=== PATIENT | male | born 1990 | race Hispanic/Latino ===

== ENCOUNTER 2020-02-17 19:09 | Emergency (ER) | payer BC ==
[~2020-02-17] VITALS: Ht 182.9 cm; Wt 122.5 kg
--- NOTE | 2020-02-17 19:27 | Emergency Department Note ---
History of Present Illnes History of Present Illness Chief Complaint: Chest Pain History of Present Illness This is a 29 year old male presents to the ED for 4 week h/o of CP. Seen by alina olivarez earlier this month . Onset (how long ago): week(s) (4) Radiation: Reports non-radiation Severity: moderate Onset quality: gradual Duration (how long): week(s) (4) Timing of current episode: intermittent Progression: waxing and waning Chronicity: recurrent Relieving factors: none Exacerbating factors: none Previous service: tests performed, one or more referrals, re-evaluation Past Medical/Family History Physician Review I have reviewed the patient's past medical and family history. Any updates have been documented here. Past Medical History Recent Fever: No Clinical Suspicion of Infectio: No New/Unexplained Change in Ment: No Past Medical History: Hypertension Past Surgical History: None Social History Smoking Cessation: Never Smoker Alcohol Use: None Any Illegal Drug Use: No Review of Systems Review of Systems Constitutional: Reports no symptoms EENTM: Reports no symptoms Cardiovascular: Reports chest pain Respiratory: Reports dyspnea Gastrointestinal: Reports no symptoms Genitourinary: Reports no symptoms Musculoskeletal: Reports no symptoms Integumentary: Reports no symptoms Neurological: Reports no symptoms Psychological: Reports no symptoms Endocrine: Reports no symptoms Hematological/Lymphatic: Reports no symptoms Physical Exam Related Data Allergies: Coded Allergies: No Known Allergies (Unverified , 02/17/20) Triage Vital Signs Vital Signs Date Time Temp Pulse Resp B/P (MAP) Pulse Ox O2 Delivery O2 Flow Rate FiO2 02/17/20 19:21 98.2 74 18 139/85 100 Room Air Vital signs reviewed: Yes Physical Exam CONSTITUTIONAL Constitutional: Present well-developed, Present well-nourished HENT HENT: Present normocephalic, Present atraumatic, Present oropharynx harrison r/moist, Present nose normal HENT L/R: Present left ext ear normal, Present right ext ear normal EYES Eyes: Reports PERRL, Reports conjunctivae normal NECK Neck: Present ROM normal PULMONARY Pulmonary: Present effort normal, Present breath sounds normal CARDIOVASCULAR Cardiovascular: Present regular rhythm, Present heart sounds normal, Present capillary refill normal, Present normal rate GASTROINTESTINAL Abdominal: Present soft, Present nontender, Present bowel sounds normal GENITOURINARY Genitourinary: Present exam deferred SKIN Skin: Present warm, Present dry MUSCULOSKELETAL Musculoskeletal: Present ROM normal NEUROLOGICAL Neurological: Present alert, Present oriented x 3, Present no gross motor or sensory deficits PSYCHOLOGICAL Psychological: Present mood/affect normal, Present judgement normal Results Laboratory Lab results reviewed: Yes Laboratory comments Laboratory Tests Test 02/17/20 19:32 White Blood Count 8.49 x10e3/uL (4.8-10.8) Red Blood Count 4.46 x10e6/uL (4.3-5.7) Hemoglobin 14.1 g/dL (14.0-18.0) Hematocrit 39.4 % (38.2-49.6) Mean Corpuscular Volume 88.3 fL (81-99) Mean Corpuscular Hemoglobin 31.6 pg (28-32) Mean Corpuscular Hemoglobin Concent 35.8 g/dL (31-35) Red Cell Distribution Width 11.9 % (11.7-14.4) Platelet Count 248 x10e3/uL (140-360) Neutrophils (%) (Auto) 50.5 % (38.7-80.0) Lymphocytes (%) (Auto) 40.0 % (18.0-39.1) Monocytes (%) (Auto) 7.2 % (4.4-11.3) Eosinophils (%) (Auto) 1.6 % (0.0-6.0) Basophils (%) (Auto) 0.5 % (0.0-1.0) Neutrophils # (Auto) 4.3 (2.1-6.9) Lymphocytes # (Auto) 3.4 (1.0-3.2) Monocytes # (Auto) 0.6 (0.2-0.8) Eosinophils # (Auto) 0.1 (0.0-0.4) Basophils # (Auto) 0.0 (0.0-0.1) Absolute Immature Granulocyte (auto 0.02 x10e3/uL (0-0.1) D-Dimer Quantitative (PE/DVT) 0.24 ug/mLFEU (0.00-0.45) Sodium Level 140 mmol/L (136-145) Potassium Level 3.7 mmol/L (3.5-5.1) Chloride Level 102 mmol/L (98-107) Carbon Dioxide Level 25 mmol/L (22-29) Anion Gap 16.7 mmol/L (8-16) Blood Urea Nitrogen 14 mg/dL (7-26) Creatinine 1.09 mg/dL (0.72-1.25) Estimat Glomerular Filtration Rate > 60 ML/MIN (60-) BUN/Creatinine Ratio 13 (6-25) Glucose Level 95 mg/dL (74-118) Calcium Level 9.4 mg/dL (8.4-10.2) Total Bilirubin 0.8 mg/dL (0.2-1.2) Aspartate Amino Transf (AST/SGOT) 19 IU/L (5-34) Alanine Aminotransferase (ALT/SGPT) 19 IU/L (0-55) Alkaline Phosphatase 80 IU/L (40-150) Creatine Kinase 79 IU/L (30-200) Creatine Kinase MB 0.80 ng/mL (0-5.0) Troponin I 0.021 ng/mL (0-0.300) B-Type Natriuretic Peptide < 10.0 pg/mL (0-100) Total Protein 7.9 g/dL (6.5-8.1) Albumin 4.5 g/dL (3.5-5.0) Globulin 3.4 g/dL (2.3-3.5) Albumin/Globulin Ratio 1.3 (0.8-2.0) Lipase 23 U/L (8-78) Urine Opiates Screen Negative (NEGATIVE) Urine Methadone Screen Negative (NEGATIVE) Urine Barbiturates Screen Negative (NEGATIVE) Urine Phencyclidine Screen Negative (NEGATIVE) Urine Amphetamines Screen Negative (NEGATIVE) Urine Methamphetamines Screen Negative (NEGATIVE) Urine Benzodiazepines Screen Negative (NEGATIVE) Urine Cocaine Screen Negative (NEGATIVE) Urine Cannabinoids Screen Negative (NEGATIVE) Imaging Imaging results reviewed: Yes Impressions [place] [id number] Patient Name: NEMO BATES JR MR #: [id number] : 1990 Age/Sex: 29/M Req #: [id number] Adm Physician: Ordered by: JIM RUBIO DO Report #: [id number] Location: ER Room/Bed: Procedure: [id number] DX/CHEST 2 VIEWS Exam Date: 02/17/20 Exam Time: 1950 REPORT STATUS: Signed EXAMINATION: CHEST 2 VIEWS INDICATION: Chest pain. COMPARISON: None FINDINGS: TUBES and LINES: None. LUNGS: Normal lung volumes. Lungs are clear. No consolidations. Bibasilar atelectasis.C PLEURA: No pleural effusion or pneumothorax. HEART AND MEDIASTINUM: The cardiomediastinal silhouette is unremarkable. BONES AND SOFT TISSUES: No acute osseous lesion. Soft tissues are unremarkable. UPPER ABDOMEN: No free air under the diaphragm. IMPRESSION: No acute thoracic radiographic abnormality. Signed by: Mushtaq Narvaez MD on 02/17/2020 9:25 PM Dictated By: MUSHTAQ NARVAEZ MD 24 Transcribed By: JESSICA on 02/17/202124 COPY TO: JIM RUBIO DO~ Procedures 12 Lead ECG Interpretation ECG Interpretation : ECG: ECG 1 Technical Support Manager: Interpreted by ED physician Date: Feb 17, 2020 Time: 19:49 Prior ECG tracings: reviewed Rhythm: sinus rhythm Rate: normal BPM: 71 QRS axis: normal ST segments normal: Yes T waves normal: Yes Clinical Impression: normal ECG Assessment & Plan Medical Decision Making MDM Diff Dx : ACS, PE, pericarditis, costochondritis. PE Reassessment Reassessment case d/w dr Wolf who agreed to see patient in a timely manner. Plan to scheduale stress test earlier than planned Assessment & Plan Final Impression: (1) Atypical chest pain Depart Disposition: HOME, SELF-CARE JIM RUBIO DO Feb 17, 2020 19:27
[2020-02-17] MEDS ORDERED: ASPIRIN 81 MG CHEW TAB PO ONE (19:30)
[2020-02-17 19:48] LABS: BASOPHILS % 0.5 % (0.0-1.0); EOSINOPHILS # (AUTO) 0.1 (0.0-0.4); EOSINOPHILS % 1.6 % (0.0-6.0); HEMATOCRIT 39.4 % (38.2-49.6); HEMOGLOBIN 14.1 g/dL (14.0-18.0); LYMPHOCYTES # (AUTO) 3.4 (1.0-3.2); MEAN CORPUSCULAR HEMOGLOBIN 31.6 pg (28-32); MEAN CORPUSCULAR HGB CONC 35.8 g/dL (31-35); MEAN CORPUSCULAR VOLUME 88.3 fL (81-99); MONOCYTES # (AUTO) 0.6 (0.2-0.8); MONOCYTES % 7.2 % (4.4-11.3); NEUTROPHILS # (AUTO) 4.3 (2.1-6.9); NEUTROPHILS % 50.5 % (38.7-80.0); PLATELET COUNT 248 x10e3/uL (140-360); RED BLOOD COUNT 4.46 x10e6/uL (4.3-5.7); RED CELL DISTRIBUTION WIDTH 11.9 % (11.7-14.4)
[2020-02-17 19:52] LABS: AMPHETAMINES SCREEN,URINE NEGATIVE (NEGATIVE); BENZODIAZEPINES SCREEN,URINE NEGATIVE (NEGATIVE); PHENCYCLIDINE SCREEN,URINE NEGATIVE (NEGATIVE)
[2020-02-17 20:06] LABS: ALANINE AMINOTRANSFERASE 19 IU/L (0-55); ALBUMIN 4.5 g/dL (3.5-5.0); ALBUMIN/GLOBULIN RATIO 1.3 (0.8-2.0); ALKALINE PHOSPHATASE 80 IU/L (40-150); ANION GAP 16.7 mmol/L (8-16); BLOOD UREA NITROGEN 14 mg/dL (7-26); BUN/CREATININE RATIO 13 (6-25); CALCIUM 9.4 mg/dL (8.4-10.2); CARBON DIOXIDE 25 mmol/L (22-29); CHLORIDE 102 mmol/L (98-107); CREATINE KINASE 79 IU/L (30-200); CREATININE, SERUM 1.09 mg/dL (0.72-1.25); EST GLOMERULAR FILTRATION RATE > 60 ML/MIN (60-); GLUCOSE 95 mg/dL (74-118); LIPASE 23 U/L (8-78); POTASSIUM 3.7 mmol/L (3.5-5.1); SODIUM 140 mmol/L (136-145)
--- NOTE | 2020-02-17 21:28 | Diagnostic Imaging Report ---
EXAMINATION: CHEST 2 VIEWS INDICATION: Chest pain. COMPARISON: None FINDINGS: TUBES and LINES: None. LUNGS: Normal lung volumes. Lungs are clear. No consolidations. Bibasilar atelectasis.C PLEURA: No pleural effusion or pneumothorax. HEART AND MEDIASTINUM: The cardiomediastinal silhouette is unremarkable. BONES AND SOFT TISSUES: No acute osseous lesion. Soft tissues are unremarkable. UPPER ABDOMEN: No free air under the diaphragm. IMPRESSION: No acute thoracic radiographic abnormality. Signed by: Justin Fink MD on 02/17/2020 9:25 PM
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
[2020-02-17] MEDS ORDERED: KETOROLAC TROMETHAMINE 30 MG/ML VIAL IV STA (22:25)
[2020-02-17] MEDS ORDERED: KETOROLAC TROMETHAMINE 30 MG/ML VIAL ONE (22:33)
== END 2020-02-17 23:00 | disposition home or self-care (01) ==
LOC: ER 22:01
DX: R07.89 Other chest pain (principal); I10 Essential (primary) hypertension
CPT/HCPCS: 36415; 71046; 80053; 80307; 82550; 82553; 83690; 83880; 84484; 85025; 85379; 93005; 99284; J1885

== ENCOUNTER 2020-03-04 18:08 | Emergency (ER) | payer BC ==
[~2020-03-04] VITALS: Ht 182.9 cm; Wt 122.5 kg
[2020-03-04] MEDS ORDERED: ASPIRIN 81 MG CHEW TAB PO ONE (19:00)
[2020-03-04 19:16] LABS: BASOPHILS # (AUTO) 0.1 (0.0-0.1); BASOPHILS % 0.7 % (0.0-1.0); EOSINOPHILS # (AUTO) 0.2 (0.0-0.4); EOSINOPHILS % 2.1 % (0.0-6.0); HEMATOCRIT 38.1 % (38.2-49.6); LYMPHOCYTES # (AUTO) 3.3 (1.0-3.2); LYMPHOCYTES % 39.1 % (18.0-39.1); MEAN CORPUSCULAR HEMOGLOBIN 30.4 pg (28-32); MEAN CORPUSCULAR HGB CONC 34.1 g/dL (31-35); MEAN CORPUSCULAR VOLUME 89.2 fL (81-99); MONOCYTES # (AUTO) 0.6 (0.2-0.8); MONOCYTES % 7.2 % (4.4-11.3); NEUTROPHILS # (AUTO) 4.3 (2.1-6.9); NEUTROPHILS % 50.7 % (38.7-80.0); PLATELET COUNT 272 x10e3/uL (140-360); RED BLOOD COUNT 4.27 x10e6/uL (4.3-5.7); RED CELL DISTRIBUTION WIDTH 11.9 % (11.7-14.4)
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
[2020-03-04 19:37] LABS: ALANINE AMINOTRANSFERASE 20 IU/L (0-55); ALBUMIN 4.4 g/dL (3.5-5.0); ALBUMIN/GLOBULIN RATIO 1.3 (0.8-2.0); ALKALINE PHOSPHATASE 87 IU/L (40-150); ANION GAP 14.6 mmol/L (8-16); BLOOD UREA NITROGEN 10 mg/dL (7-26); BUN/CREATININE RATIO 10 (6-25); CALCIUM 9.1 mg/dL (8.4-10.2); CARBON DIOXIDE 24 mmol/L (22-29); CHLORIDE 104 mmol/L (98-107); CREATINE KINASE 230 IU/L (30-200); CREATININE, SERUM 1.05 mg/dL (0.72-1.25); EST GLOMERULAR FILTRATION RATE > 60 ML/MIN (60-); GLUCOSE 109 mg/dL (74-118); POTASSIUM 3.6 mmol/L (3.5-5.1); SODIUM 139 mmol/L (136-145)
[2020-03-04 21:51] VITALS: BP 111/74
--- NOTE | 2020-03-04 23:11 | Diagnostic Imaging Report ---
EXAMINATION: CHEST SINGLE (PORTABLE) INDICATION: Chest pain COMPARISON: Chest x-ray 02/17/2020 FINDINGS: TUBES and LINES: None. LUNGS: Normal lung volumes. Lungs are clear. No consolidations. PLEURA: No pleural effusion or pneumothorax. HEART AND MEDIASTINUM: The cardiomediastinal silhouette is unremarkable. BONES AND SOFT TISSUES: No acute osseous lesion. Soft tissues are unremarkable. UPPER ABDOMEN: No free air under the diaphragm. IMPRESSION: No acute thoracic radiographic abnormality. Signed by: Giorgio Roldan DO on 03/04/2020 11:08 PM
== END 2020-03-04 21:59 | disposition home or self-care (01) ==
LOC: ER 19:03
DX: R07.89 Other chest pain (principal); I10 Essential (primary) hypertension
CPT/HCPCS: 36415; 71045; 80053; 82550; 82553; 84484; 85025; 93005; 99283

== ENCOUNTER → 2020-04-05 | Outpatient (CLI) | payer BC ==
[~2020-04-05] MED LIST: IOPAMIDOL 370 MG/ML 200 ML INFUS..BTL INJ ONE; METOPROLOL TARTRATE 25 MG TAB ONE; METOPROLOL TARTRATE INJ 1 MG/ML VIAL ONE; NITROGLYCERIN 0.4 MG SUBL ONE; SODIUM CHLORIDE 0.9% 100 ML ONE
[2020-04-05 08:45] LABS: BLOOD UREA NITROGEN 14 mg/dL (7-26); BUN/CREATININE RATIO 15 (6-25); CREATININE, SERUM 0.93 mg/dL (0.72-1.25); EST GLOMERULAR FILTRATION RATE > 60 ML/MIN (60-)
--- NOTE | 2020-04-07 11:00 | Diagnostic Imaging Report ---
EXAM: CALCIUM SCORE AND CORONARY CTA INDICATION: ^[id number] ^[id number] ^CHEST PAIN COMPARISON: None. TECHNIQUE: Multi-detector CT technology was employed (64 MDCT [employer]). Minimal slice thickness was performed following the intravenous administration of contrast material. The patient was premedicated with 50 mg by mouth metoprolol and 0.4 mg sublingual nitroglycerin for heart rate control and coronary dilation, respectively. IV CONTRAST: 100 mL of Omnipaque 350 ORAL CONTRAST: None COMPLICATIONS: None RADIATION DOSE: Total DLP: 1357 mGy*cm Estimated effective dose: (DLP x 0.015 x size factor) mSv CTDIvol has been reviewed. It is below the limits set by the Radiation Protocol Committee (RPC). For optimization of anatomic evaluation, multiplanar reconstruction, maximum intensity projections, and advanced 3-D off-line postprocessing were performed on a dedicated stand-alone workstation under the direct supervision of the interpreting physician. QUALITY: Motion artifact limits evaluation of the RCA, however, segments were able to assess on multiphase reconstruction. FINDINGS: CALCIUM SCORE: The observed Agatston Calcium Score of 0 is at percentile 25% for subjects of the same age and gender who are free of clinical cardiovascular disease and treated diabetes. The Agatston score for each vessel is as follows: LM: 0 LAD: 0 LCx: 0 RCA: 0 DISTRIBUTION OF THE CALCIFIED PLAQUES: None. CORONARY ANATOMY: There is normal origin of the coronary arteries. Left Main Coronary Artery: The left main is normal sized vessel that trifurcates into the LAD, ramus intermedius, and left circumflex. There is no evidence of atherosclerotic changes or stenotic disease. Left Anterior Descending Coronary Artery: The LAD is a normal size vessel that wraps around the apex. It gives rise to two acute diagonal branches. There is no evidence of atherosclerotic changes or stenotic disease. Left Circumflex Coronary Artery: The LCX is hypoplastic and non-dominant. It gives rise to one obtuse marginal branches. There is no evidence of atherosclerotic changes or stenotic disease. Right Coronary Artery: The RCA is a normal size vessel, which is dominant. It gives rise to a conus branch, AV melanie branch, and one acute marginal branches. In its distal segment it bifurcates into the PDA and PV branch. There is no evidence of atherosclerotic changes or stenotic disease. CARDIAC MORPHOLOGY AND FUNCTION: The right and left atria and ventricles are morphologically normal. There is normal resting global left ventricular systolic function. LVEF: 57%, LV end diastolic volume: 186 cc LV end systolic volume: 80 cc LV stroke volume: 105 cc LIMITED CHEST: Limited views of the visualized chest show no abnormality within chest wall and mediastinum. No mediastinal lymphadenopathy. The visualized lungs are clear. The visualized portions of the ascending and descending thoracic aorta are of normal size. LIMITED ABDOMEN: Limited images of the upper abdomen reveal no abnormalities of the visualized organs. BONES: No acute osseous abnormalities. IMPRESSION: 1. Total Agatston Calcium Score: 0 that corresponds to percentile 25%, representing no atherosclerotic plaque. 2. Normal coronary anatomy without evidence of atherosclerotic changes or stenotic disease. CAD-GISSELL: 0 Reference: J Cardiovasc Comput Tomogr. Nov-Dec 2015;10(4):269-81. Signed by: Dr. Carolee Michael M.D. on 04/07/2020 10:56 AM
== END ==
LOC: CT 07:06
PROVIDERS: ATTEND Internal Medicine
DX: R07.9 Chest pain, unspecified (principal)
CPT/HCPCS: 36415; 75574; 82565; 84520; J7050; Q9967

== ENCOUNTER 2020-05-22 20:48 | Emergency (ER) | payer BC ==
[~2020-05-22] VITALS: Ht 182.9 cm; Wt 122.5 kg
[2020-05-22] MEDS ORDERED: PANTOPRAZOLE 40 MG 10ML VIAL IV STA (21:50)
[2020-05-22 21:58] LABS: BASOPHILS % 0.4 % (0.0-1.0); EOSINOPHILS # (AUTO) 0.1 (0.0-0.4); EOSINOPHILS % 1.1 % (0.0-6.0); HEMATOCRIT 42.5 % (38.2-49.6); LYMPHOCYTES # (AUTO) 2.9 (1.0-3.2); LYMPHOCYTES % 27.5 % (18.0-39.1); MEAN CORPUSCULAR HEMOGLOBIN 30.5 pg (28-32); MEAN CORPUSCULAR HGB CONC 35.3 g/dL (31-35); MEAN CORPUSCULAR VOLUME 86.4 fL (81-99); MONOCYTES # (AUTO) 0.8 (0.2-0.8); MONOCYTES % 7.7 % (4.4-11.3); NEUTROPHILS # (AUTO) 6.7 (2.1-6.9); NEUTROPHILS % 62.9 % (38.7-80.0); PLATELET COUNT 283 x10e3/uL (140-360); RED BLOOD COUNT 4.92 x10e6/uL (4.3-5.7); RED CELL DISTRIBUTION WIDTH 11.9 % (11.7-14.4)
[2020-05-22 22:21] LABS: ALANINE AMINOTRANSFERASE 29 IU/L (0-55); ALBUMIN 4.3 g/dL (3.5-5.0); ALBUMIN/GLOBULIN RATIO 1.1 (0.8-2.0); ALKALINE PHOSPHATASE 92 IU/L (40-150); BLOOD UREA NITROGEN 16 mg/dL (7-26); BUN/CREATININE RATIO 16 (6-25); CALCIUM 9.2 mg/dL (8.4-10.2); CARBON DIOXIDE 23 mmol/L (22-29); CHLORIDE 102 mmol/L (98-107); CREATINE KINASE 92 IU/L (30-200); CREATININE, SERUM 0.99 mg/dL (0.72-1.25); EST GLOMERULAR FILTRATION RATE > 60 ML/MIN (60-); GLUCOSE 99 mg/dL (74-118); SODIUM 137 mmol/L (136-145)
[2020-05-22 22:22] LABS: AMYLASE 49 U/L (25-125); LIPASE 16 U/L (8-78)
== END 2020-05-22 23:31 | disposition home or self-care (01) ==
LOC: ER 21:37
DX: R10.13 Epigastric pain (principal); K29.70 Gastritis, unspecified, without bleeding; I10 Essential (primary) hypertension
CPT/HCPCS: 36415; 80053; 82150; 82550; 82553; 83690; 84484; 85025; 93005; 99283

== ENCOUNTER → 2021-04-19 | Outpatient (CLI) | payer BC | LOC: MRI 07:46 | PROVIDERS: ATTEND Specialist | DX: M17.11 Unilateral primary osteoarthritis, right knee (principal); M23.91 Unspecified internal derangement of right knee ==